=== PATIENT | female | born 1970 | race Two or more races ===

== ENCOUNTER → 2024-10-28 | Outpatient (CLI) | payer MEDICAID, SELFPAY ==
--- NOTE | 2024-10-28 14:30 | XR_ITS ---
Examination: MRI pelvis with intravenous contrast. MRI pelvis without intravenous contrast. Date and time of exam: October 28, 2024 1429 hours INDICATIONS: Pelvic sonogram August 12, 2024 right ovarian complex cystic mass 6.1 x 4.0 x 3.5 cm with internal echoes and irregular margins, pelvic pain 3 months Technique: Multiple axial, sagittal and coronal sections of the pelvis obtained. Transverse images, TR 6020, TE 107. T1 weighted transverse images, TR 582, TE 9.5. T2-weighted sagittal images, TR 4000, TE 105. T2-weighted sagittal images, TR 4000, TE 5. Coronal images, TR 4210, TE 107. Axial and coronal images are obtained post 19 cc intravenous injection, gadolinium. Findings: Absent uterus Right pelvic cystic mass 5.2 x 2.9 x 4.7 cm with minor septation Postcontrast images do not demonstrate mural enhancement or other enhancement of this mass No internal enhancing component is depicted Left ovary 2.2 x 1.8 cm IMPRESSION: Findings most consistent with nonneoplastic right adnexal cyst Recommend 3-6 month follow-up pelvic sonography
== END | disposition home or self-care (01) ==
PROVIDERS: PCP Family Medicine; Referring Provider Student in an Organized Health Care Education/Training Program; Visit Provider Student in an Organized Health Care Education/Training Program
DX: R16.0 Hepatomegaly, not elsewhere classified (principal); N83.8 Other noninflammatory disorders of ovary, fallopian tube and broad ligament
CPT/HCPCS: 72197; A9579